=== PATIENT | female | born 1940 | race Caucasian/White ===

== ENCOUNTER 2020-10-21 12:46 | Inpatient (IN) | payer OTHER, MEDICAID, SELFPAY ==
[~2020-10-21] VITALS: Ht 152.4 cm; Wt 54.0 kg
[~2020-10-21 12:46] MED LIST: ATOR20TA64 PO; CLON2TAB11 PO; COU5 PO; GABA-331 PO; OXYC10TA48 PO
[2020-10-21 12:51] VITALS: BP_SYST 86
[2020-10-21 13:33] LABS: BILIRUBIN,URINE 1+ (NEGATIVE); BLOOD, URINE 1+ (NEGATIVE); COLOR,URINE YELLOW (YELLOW); GLUCOSE,URINE NEGATIVE (NEGATIVE); KETONES,URINE 3+ (NEGATIVE); LEUKOCYTE ESTERASE ,URINE NEGATIVE (NEGATIVE); NITRITE, URINE NEGATIVE (NEGATIVE); PH,URINE 6.5 (5.0-8.0); PROTEIN URINE TRACE (NEGATIVE)
[2020-10-21 13:36] LABS: CLARITY/URINE HAZY (CLEAR)
[2020-10-21 13:43] LABS: BACTERIA,URINE FEW /HPF (None Seen); WBC,URINE 0-3 /HPF (0-3)
[2020-10-21 13:44] LABS: MUCUS,URINE 1+ /LPF (None Seen)
[2020-10-21 14:04] LABS: WHITE BLOOD COUNT (AUTO) 10.5 K/uL (4.8-10.8)
[2020-10-21 14:08] LABS: ANION GAP 11 (5-15); CALCIUM 10.1 mg/dL (8.4-11.0); CHLORIDE 93 mmol/L (98-107); CREATININE 0.56 mg/dL (0.55-1.30); GLUCOSE 101 mg/dL (70-99); SODIUM SERUM 131 mmol/L (136-145); UREA NITROGEN, BLOOD 11 mg/dL (8-21)
[2020-10-21 14:11] LABS: BASOPHILS # (AUTO) 0.2 K/uL (0.0-0.2); BASOPHILS % (AUTO) 1.7 % (0.0-2.0); EOSINOPHILS % (AUTO) 0.4 % (0.0-4.0); HEMATOCRIT 41.7 % (36-48); HEMOGLOBIN 14.5 g/dL (12.0-16.0); LYMPHOCYTES # (AUTO) 2.1 K/uL (1.0-5.5); LYMPHOCYTES % (AUTO) 19.5 % (20.5-51.5); MEAN CORPUSCULAR HEMOGLOBIN 31 pg (27-31); MEAN CORPUSCULAR HGB CONC 35 % (32-36); MEAN CORPUSCULAR VOLUME 89 fL (79.0-98.0); MONOCYTES # (AUTO) 0.6 K/uL (0.0-1.0); MONOCYTES % (AUTO) 5.6 % (1.7-9.3); NEUTROPHILS # (AUTO) 7.7 K/uL (1.8-7.7); NEUTROPHILS % (AUTO) 72.8 % (40.0-70.0); PLATELET COUNT (AUTO) 285 K/uL (130-430); RED CELL DISTRIBUTION WIDTH 13.3 % (9.0-15.0)
[2020-10-21 14:14] LABS: ALANINE AMINOTRANSFERASE 30 U/L (12-78); ALBUMIN 3.8 g/dL (3.4-4.8); ASPARTATE AMINOTRANSFERASE 51 U/L (10-37); TOTAL BILIRUBIN 0.7 mg/dL (0.0-1.0)
[2020-10-21 14:35] LABS: POTASSIUM 2.5 mmol/L (3.5-5.1)
[2020-10-21 14:45] LABS: CKMB RELATIVE INDEX 1.8 (0.0-2.9); CREATINE KINASE MB 12.1 ng/mL (0-3.6)
[2020-10-21] MEDS ORDERED: POTASSIUM CHLORIDE 20 MEQ/PKT PACKET PO ONE (14:45)
[2020-10-21] MEDS ORDERED: WARF4TAB72 PO (15:53)
[2020-10-21] MEDS ORDERED: GABA800T PO (15:53)
[2020-10-21] MEDS ORDERED: AMLO1CAP PO (15:53)
[2020-10-21] MEDS ORDERED: LIP20 PO (15:53)
[2020-10-21] MEDS ORDERED: OXYIR5 PO (15:53)
[2020-10-21] MEDS ORDERED: VENL37.55 PO (15:53)
[2020-10-21] MEDS ORDERED: GALA8TAB3 PO (15:53)
[2020-10-21 16:57] VITALS: BP_SYST 136
[2020-10-21] MEDS ORDERED: ACETAMINOPHEN 325 MG TABLET PO PRN (19:15)
[2020-10-21] MEDS ORDERED: POTASSIUM CHLORIDE 20 MEQ TAB.PRT.SR PO ONE (19:15)
[2020-10-21 19:27] LABS: PROTHROMBIN TIME 45.4 SECS (9.5-12.5)
[2020-10-21 19:28] LABS: INR 4.8 (0.8-1.2)
[2020-10-21 20:00] VITALS: BP_SYST 91
[2020-10-21] MEDS: KCL 20 mEq in NS 1000 mL 1,000 ML IV SCH (20:29)
[2020-10-21] MEDS ORDERED: oxyCODONE HCL 5 MG TABLET PO PRN (22:15)
[2020-10-21] MEDS ORDERED: clonazePAM 0.5 MG TABLET PO ONE (22:30)
[2020-10-22] VITALS: BP_SYST 145
[2020-10-22] MEDS ORDERED: HALOPERIDOL LACTATE 5 MG/ML VIAL IM ONE (00:15)
[2020-10-22] MEDS ORDERED: HALOPERIDOL LACTATE 5 MG/ML VIAL ONE (00:20)
[2020-10-22 07:21] LABS: BASOPHILS % (AUTO) 0.2 % (0.0-2.0); EOSINOPHILS # (AUTO) 0.1 K/uL (0.0-0.4); EOSINOPHILS % (AUTO) 0.8 % (0.0-4.0); HEMATOCRIT 41.5 % (36-48); HEMOGLOBIN 14.2 g/dL (12.0-16.0); LYMPHOCYTES % (AUTO) 16.4 % (20.5-51.5); MEAN CORPUSCULAR HEMOGLOBIN 30 pg (27-31); MEAN CORPUSCULAR HGB CONC 34 % (32-36); MEAN CORPUSCULAR VOLUME 89 fL (79.0-98.0); MONOCYTES # (AUTO) 0.9 K/uL (0.0-1.0); MONOCYTES % (AUTO) 7.8 % (1.7-9.3); NEUTROPHILS % (AUTO) 74.8 % (40.0-70.0); PLATELET COUNT (AUTO) 253 K/uL (130-430); RED BLOOD CELL COUNT(AUTO) 4.68 MIL/uL (4.2-6.2); RED CELL DISTRIBUTION WIDTH 13.4 % (9.0-15.0)
[2020-10-22 08:10] LABS: ALANINE AMINOTRANSFERASE 39 U/L (12-78); ALBUMIN 3.5 g/dL (3.4-4.8); ANION GAP 10 (5-15); ASPARTATE AMINOTRANSFERASE 60 U/L (10-37); CALCIUM 9.9 mg/dL (8.4-11.0); CHLORIDE 100 mmol/L (98-107); CREATININE 0.48 mg/dL (0.55-1.30); GLUCOSE 91 mg/dL (70-99); SODIUM SERUM 139 mmol/L (136-145); THYROID STIMULATING HORMONE 1.92 uIu/mL (0.36-3.74); TOTAL BILIRUBIN 0.6 mg/dL (0.0-1.0); UREA NITROGEN, BLOOD 12 mg/dL (8-21)
[2020-10-22 08:22] LABS: POTASSIUM 2.8 mmol/L (3.5-5.1)
[2020-10-22] MEDS ORDERED: POTASSIUM CHLORIDE 40 MEQ, LIDOCAINE JECT 2% PF 100 MG 50 MG in NS 250 ML IV ONE (08:45)
[2020-10-22 08:53] LABS: CKMB RELATIVE INDEX 1.9 (0.0-2.9); CREATINE KINASE MB 14.9 ng/mL (0-3.6)
[2020-10-22 09:00] VITALS: BP_SYST 151
[2020-10-22] MEDS ORDERED: NON-FORMULARY MEDICATION (Gabapentin 600 MG) PO SCH (09:00)
[2020-10-22] MEDS ORDERED: clonazePAM 0.5 MG TABLET PO SCH (09:00)
[2020-10-22] MEDS: ATORVASTATIN 20 MG TABLET PO SCH (09:21)
[2020-10-22] MEDS: GABAPENTIN 300 MG CAPSULE PO SCH ×4 (09:21→22:29)
[2020-10-22] MEDS: Effexor XR 37.5 MG PO SCH (09:21)
[2020-10-22] MEDS: GALANTAMINE HYDROBROMIDE 4 MG TABLET PO SCH (09:21)
[2020-10-22 09:26] LABS: PROTHROMBIN TIME 39.7 SECS (9.5-12.5)
[2020-10-22] MEDS: KCL 20 mEq in NS 1000 mL 1,000 ML IV SCH ×2 (10:08→22:29)
[2020-10-22] MEDS ORDERED: oxyCODONE HCL 5 MG TABLET PO PRN (15:15)
[2020-10-22 16:02] VITALS: BP_SYST 114
[2020-10-22 20:10] VITALS: BP_SYST 146
[2020-10-22] MEDS: clonazePAM 0.5 MG TABLET PO SCH (22:29)
[2020-10-23 00:53] VITALS: BP_SYST 141
[2020-10-23 08:00] VITALS: BP_SYST 127
[2020-10-23] MEDS: clonazePAM 0.5 MG TABLET PO SCH ×2 (08:39→23:48)
[2020-10-23] MEDS: GALANTAMINE HYDROBROMIDE 4 MG TABLET PO SCH (08:40)
[2020-10-23] MEDS: GABAPENTIN 300 MG CAPSULE PO SCH (08:40)
[2020-10-23] MEDS: Effexor XR 37.5 MG PO SCH (09:00)
[2020-10-23] MEDS: ATORVASTATIN 20 MG TABLET PO SCH (09:00)
[2020-10-23 09:35] LABS: ALANINE AMINOTRANSFERASE 36 U/L (12-78); ALBUMIN 2.9 g/dL (3.4-4.8); ANION GAP 8 (5-15); ASPARTATE AMINOTRANSFERASE 52 U/L (10-37); CALCIUM 8.9 mg/dL (8.4-11.0); CHLORIDE 105 mmol/L (98-107); CREATININE 0.36 mg/dL (0.55-1.30); GLUCOSE 78 mg/dL (70-99); POTASSIUM 3.1 mmol/L (3.5-5.1); SODIUM SERUM 141 mmol/L (136-145); TOTAL BILIRUBIN 0.6 mg/dL (0.0-1.0); UREA NITROGEN, BLOOD 7 mg/dL (8-21)
[2020-10-23] MEDS ORDERED: POTASSIUM CHLORIDE 40 MEQ, LIDOCAINE JECT 2% PF 100 MG 50 MG in NS 250 ML IV ONE (09:45)
[2020-10-23 10:17] LABS: THYROID STIMULATING HORMONE 2.2 uIu/mL (0.36-3.74)
[2020-10-23 10:20] LABS: CKMB RELATIVE INDEX 2.2 (0.0-2.9); CREATINE KINASE MB 7.3 ng/mL (0-3.6)
[2020-10-23 11:11] LABS: INR 8.8 (0.8-1.2); PROTHROMBIN TIME 82.4 SECS (9.5-12.5)
[2020-10-23 12:04] VITALS: BP_SYST 132
[2020-10-23 16:49] VITALS: BP_SYST 132
[2020-10-23 21:00] VITALS: BP_SYST 133
[2020-10-23] MEDS ORDERED: QUEtiapine FUMARATE 25 MG TABLET PO SCH (21:00)
[2020-10-23] MEDS: DONEPEZIL HCL 5 MG TABLET (ARICEPT) PO SCH (23:48)
[2020-10-23] MEDS: KCL 20 mEq in NS 1000 mL 1,000 ML IV SCH (23:49)
[2020-10-24 00:25] VITALS: BP_SYST 161
[2020-10-24] MEDS: KCL 20 mEq in NS 1000 mL 1,000 ML IV SCH ×2 (05:39→11:45)
[2020-10-24 07:46] LABS: BASOPHILS # (AUTO) 0.1 K/uL (0.0-0.2); BASOPHILS % (AUTO) 1.2 % (0.0-2.0); EOSINOPHILS # (AUTO) 0.2 K/uL (0.0-0.4); EOSINOPHILS % (AUTO) 2.8 % (0.0-4.0); HEMATOCRIT 42.8 % (36-48); HEMOGLOBIN 14.4 g/dL (12.0-16.0); LYMPHOCYTES # (AUTO) 2.8 K/uL (1.0-5.5); LYMPHOCYTES % (AUTO) 32.4 % (20.5-51.5); MEAN CORPUSCULAR HEMOGLOBIN 31 pg (27-31); MEAN CORPUSCULAR HGB CONC 34 % (32-36); MEAN CORPUSCULAR VOLUME 91 fL (79.0-98.0); MONOCYTES # (AUTO) 0.6 K/uL (0.0-1.0); MONOCYTES % (AUTO) 6.8 % (1.7-9.3); NEUTROPHILS # (AUTO) 4.8 K/uL (1.8-7.7); NEUTROPHILS % (AUTO) 56.8 % (40.0-70.0); PLATELET COUNT (AUTO) 224 K/uL (130-430); RED BLOOD CELL COUNT(AUTO) 4.72 MIL/uL (4.2-6.2); RED CELL DISTRIBUTION WIDTH 13.9 % (9.0-15.0); WHITE BLOOD COUNT (AUTO) 8.5 K/uL (4.8-10.8)
[2020-10-24 07:51] LABS: INR 1.6 (0.8-1.2); PROTHROMBIN TIME 16.1 SECS (9.5-12.5)
[2020-10-24 08:09] LABS: ALANINE AMINOTRANSFERASE 34 U/L (12-78); ANION GAP 8 (5-15); ASPARTATE AMINOTRANSFERASE 47 U/L (10-37); CALCIUM 9.4 mg/dL (8.4-11.0); CHLORIDE 104 mmol/L (98-107); CREATININE 0.44 mg/dL (0.55-1.30); GLUCOSE 91 mg/dL (70-99); POTASSIUM 3.1 mmol/L (3.5-5.1); SODIUM SERUM 139 mmol/L (136-145); TOTAL BILIRUBIN 0.7 mg/dL (0.0-1.0); UREA NITROGEN, BLOOD 8 mg/dL (8-21)
[2020-10-24 08:35] VITALS: BP_SYST 170
[2020-10-24] MEDS: Effexor XR 37.5 MG PO SCH (08:51)
[2020-10-24] MEDS: clonazePAM 0.5 MG TABLET PO SCH ×2 (08:51→20:52)
[2020-10-24] MEDS: ATORVASTATIN 20 MG TABLET PO SCH (08:51)
[2020-10-24] MEDS: GALANTAMINE HYDROBROMIDE 4 MG TABLET PO SCH (08:51)
[2020-10-24] MEDS ORDERED: APIXABAN 2.5 MG TABLET PO ONE (09:45)
[2020-10-24 16:00] VITALS: BP_SYST 145
[2020-10-24] MEDS ORDERED: NICOTINE 21 MG/24 HR PATCH.TD24 TD ONE (16:45)
[2020-10-24 20:00] VITALS: BP_SYST 152
[2020-10-24] MEDS: DONEPEZIL HCL 5 MG TABLET (ARICEPT) PO SCH (20:53)
[2020-10-24] MEDS: APIXABAN 2.5 MG TABLET PO SCH (20:57)
[2020-10-24] MEDS: QUEtiapine FUMARATE 25 MG TABLET PO SCH (20:57)
[2020-10-25] VITALS: BP_SYST 167
[2020-10-25] MEDS ORDERED: cloNIDine HCL 0.1 MG TABLET PO ONE (00:30)
[2020-10-25] MEDS: KCL 20 mEq in NS 1000 mL 1,000 ML IV SCH ×2 (06:38→16:00)
[2020-10-25 08:30] VITALS: BP_SYST 151
[2020-10-25] MEDS: GALANTAMINE HYDROBROMIDE 4 MG TABLET PO SCH (09:39)
[2020-10-25] MEDS: ATORVASTATIN 20 MG TABLET PO SCH (09:40)
[2020-10-25] MEDS: QUEtiapine FUMARATE 25 MG TABLET PO SCH ×2 (09:40→23:06)
[2020-10-25] MEDS: APIXABAN 2.5 MG TABLET PO SCH ×2 (09:40→23:07)
[2020-10-25] MEDS: clonazePAM 0.5 MG TABLET PO SCH ×2 (09:41→23:07)
[2020-10-25] MEDS: NICOTINE 21 MG/24 HR PATCH.TD24 TD SCH (09:42)
[2020-10-25 12:20] VITALS: BP_SYST 114
[2020-10-25 16:00] VITALS: BP_SYST 107
[2020-10-25] MEDS ORDERED: cloNIDine HCL 0.1 MG TABLET PO PRN (17:15)
[2020-10-25 20:00] VITALS: BP_SYST 120
[2020-10-25] MEDS: DONEPEZIL HCL 5 MG TABLET (ARICEPT) PO SCH (23:06)
[2020-10-26] VITALS: BP_SYST 104
[2020-10-26] MEDS: KCL 20 mEq in NS 1000 mL 1,000 ML IV SCH ×2 (05:49→22:07)
[2020-10-26 08:30] VITALS: BP_SYST 99
[2020-10-26] MEDS: GALANTAMINE HYDROBROMIDE 4 MG TABLET PO SCH (09:31)
[2020-10-26] MEDS: ATORVASTATIN 20 MG TABLET PO SCH (09:31)
[2020-10-26] MEDS: NICOTINE 21 MG/24 HR PATCH.TD24 TD SCH (09:31)
[2020-10-26] MEDS: APIXABAN 2.5 MG TABLET PO SCH ×2 (09:32→22:05)
[2020-10-26] MEDS: QUEtiapine FUMARATE 25 MG TABLET PO SCH ×2 (09:32→22:06)
[2020-10-26 12:00] VITALS: BP_SYST 136
[2020-10-26 16:05] VITALS: BP_SYST 154
[2020-10-26 20:00] VITALS: BP_SYST 107
[2020-10-26] MEDS ORDERED: clonazePAM 0.5 MG TABLET PO SCH (21:00)
[2020-10-26] MEDS: DONEPEZIL HCL 5 MG TABLET (ARICEPT) PO SCH (22:06)
[2020-10-27] VITALS: BP_SYST 114
[2020-10-27 08:00] VITALS: BP_SYST 143
[2020-10-27] MEDS ORDERED: clonazePAM 0.5 MG TABLET PO SCH (09:00)
[2020-10-27] MEDS ORDERED: clonazePAM 0.5 MG TABLET ONE (11:20)
[2020-10-27] MEDS: NICOTINE 21 MG/24 HR PATCH.TD24 TD SCH (11:23)
[2020-10-27] MEDS: GALANTAMINE HYDROBROMIDE 4 MG TABLET PO SCH (11:23)
[2020-10-27] MEDS: QUEtiapine FUMARATE 25 MG TABLET PO SCH (11:23)
[2020-10-27] MEDS: ATORVASTATIN 20 MG TABLET PO SCH (11:23)
[2020-10-27] MEDS: APIXABAN 2.5 MG TABLET PO SCH (11:26)
[2020-10-27] MEDS ORDERED: POTASSIUM CHLORIDE 20 MEQ TAB.PRT.SR PO ONE (12:00)
[2020-10-27 16:35] VITALS: BP_SYST 121
== END 2020-10-27 17:05 | DRG 64 ==
LOC: SED 12:46 → STU 15:54
PROVIDERS: ADMIT Internal Medicine; ATTEND Internal Medicine
DX: I63.9 Cerebral infarction, unspecified (principal); G93.41 Metabolic encephalopathy; E87.1 Hypo-osmolality and hyponatremia; F11.20 Opioid dependence, uncomplicated; F13.20 Sedative, hypnotic or anxiolytic dependence, uncomplicated; M62.82 Rhabdomyolysis; E87.6 Hypokalemia; E86.0 Dehydration; E78.5 Hyperlipidemia, unspecified; F03.90 Unspecified dementia, unspecified severity, without behavioral disturbance, psychotic disturbance, mood disturbance, and anxiety; F17.210 Nicotine dependence, cigarettes, uncomplicated; F41.9 Anxiety disorder, unspecified; G25.81 Restless legs syndrome; I11.9 Hypertensive heart disease without heart failure; G89.4 Chronic pain syndrome; Z20.822 Contact with and (suspected) exposure to COVID-19; G62.9 Polyneuropathy, unspecified; F29 Unspecified psychosis not due to a substance or known physiological condition; I73.9 Peripheral vascular disease, unspecified; J44.9 Chronic obstructive pulmonary disease, unspecified; Z79.01 Long term (current) use of anticoagulants; Z86.718 Personal history of other venous thrombosis and embolism; Z86.73 Personal history of transient ischemic attack (TIA), and cerebral infarction without residual deficits; Z71.6 Tobacco abuse counseling; Z78.1 Physical restraint status
CPT/HCPCS: 36415; 70450-TC; 71045; 76376; 80053; 80061; 81000-TC; 82550-TC; 82553-TC; 82607; 82962; 83735-TC; 84443-TC; 84484; 85025; 85610-TC; 85730-TC; 87040-TC; 87086; 92610-GN; 93005; 93306; 93880; 95816; 97110-GP; 97112-GP; 97116-GP; 97530-GP; 99285; G0378; J1630; J3480; J7050

== ENCOUNTER 2022-09-12 13:13 | Inpatient (IN) | payer OTHER, MEDICAID ==
[~2022-09-12] VITALS: Ht 162.6 cm; Wt 51.7 kg
[~2022-09-12 13:13] MED LIST changes: +AMLO-138 PO; -CLON2TAB11 PO; -COU5 PO; -GABA-331 PO; +LIP20 PO; -OXYC10TA48 PO; +VENL37.55 PO
[2022-09-12 13:20] VITALS: BP_SYST 124
[2022-09-12] MEDS ORDERED: POTASSIUM (14:12)
[2022-09-12] MEDS ORDERED: RIVA2.5T (14:12)
[2022-09-12] MEDS ORDERED: VENL37.587 (14:12)
[2022-09-12] MEDS ORDERED: LACT1CAP69 (14:12)
[2022-09-12] MEDS ORDERED: LIPA1CAP26 (14:15)
[2022-09-12] MEDS ORDERED: PRO40 (14:15)
[2022-09-12] MEDS ORDERED: KLO.5 (14:15)
[2022-09-12 14:22] LABS: BASOPHILS # (AUTO) 0.1 K/uL (0.0-0.2); BASOPHILS % (AUTO) 0.6 % (0.0-2.0); EOSINOPHILS # (AUTO) 0.4 K/uL (0.0-0.4); EOSINOPHILS % (AUTO) 4.2 % (0.0-4.0); HEMATOCRIT 41.1 % (36-48); HEMOGLOBIN 14.4 g/dL (12.0-16.0); LYMPHOCYTES % (AUTO) 31.4 % (20.5-51.5); MEAN CORPUSCULAR HEMOGLOBIN 31 pg (27-31); MEAN CORPUSCULAR HGB CONC 35 % (32-36); MEAN CORPUSCULAR VOLUME 87 fL (79.0-98.0); MONOCYTES # (AUTO) 0.5 K/uL (0.0-1.0); MONOCYTES % (AUTO) 5.2 % (1.7-9.3); NEUTROPHILS # (AUTO) 5.6 K/uL (1.8-7.7); NEUTROPHILS % (AUTO) 58.6 % (40.0-70.0); PLATELET COUNT (AUTO) 232 K/uL (130-430); RED BLOOD CELL COUNT(AUTO) 4.71 MIL/uL (4.2-6.2); RED CELL DISTRIBUTION WIDTH 13.7 % (9.0-15.0); WHITE BLOOD COUNT (AUTO) 9.6 K/uL (4.8-10.8)
[2022-09-12 14:27] LABS: ANION GAP 6 (5-15); CALCIUM 10.4 mg/dL (8.4-11.0); CHLORIDE 106 mmol/L (98-107); CREATININE 0.74 mg/dL (0.55-1.30); GLUCOSE 120 mg/dL (70-99); UREA NITROGEN, BLOOD 19 mg/dL (8-21)
[2022-09-12 14:36] LABS: ALANINE AMINOTRANSFERASE 13 U/L (12-78); ALBUMIN 3.3 g/dL (3.4-4.8); ASPARTATE AMINOTRANSFERASE 15 U/L (10-37); TOTAL BILIRUBIN 0.5 mg/dL (0.0-1.0)
[2022-09-12 18:45] VITALS: BP_SYST 114; BP_SYST 96
[2022-09-12] MEDS ORDERED: POTASSIUM CHLORIDE 20 MEQ TAB.PRT.SR PO ONE (19:30)
[2022-09-12] MEDS ORDERED: METOPROLOL TARTRATE 25 MG TABLET PO ONE (19:45)
[2022-09-12 20:00] VITALS: BP_SYST 122
[2022-09-12] MEDS: clonazePAM 0.5 MG TABLET PO SCH (20:15)
[2022-09-12] MEDS ORDERED: ENOXAPARIN SODIUM 40 MG/0.4 ML SYRINGE SUBCUT SCH (21:00)
[2022-09-13] VITALS: BP_SYST 118
[2022-09-13] MEDS ORDERED: ZOLPIDEM TARTRATE 5 MG TABLET ONE (01:13)
[2022-09-13] MEDS ORDERED: ZOLPIDEM TARTRATE 5 MG TABLET PO PRN (01:15)
[2022-09-13 07:57] VITALS: BP_SYST 135
[2022-09-13 08:53] LABS: ANION GAP 8 (5-15); CALCIUM 10.2 mg/dL (8.4-11.0); CHLORIDE 105 mmol/L (98-107); CREATININE 0.76 mg/dL (0.55-1.30); GLUCOSE 129 mg/dL (70-99); UREA NITROGEN, BLOOD 21 mg/dL (8-21)
[2022-09-13 08:55] LABS: BASOPHILS # (AUTO) 0.1 K/uL (0.0-0.2); BASOPHILS % (AUTO) 0.6 % (0.0-2.0); EOSINOPHILS # (AUTO) 0.3 K/uL (0.0-0.4); EOSINOPHILS % (AUTO) 3.8 % (0.0-4.0); HEMATOCRIT 42.1 % (36-48); HEMOGLOBIN 14.4 g/dL (12.0-16.0); LYMPHOCYTES % (AUTO) 32.9 % (20.5-51.5); MEAN CORPUSCULAR HEMOGLOBIN 30 pg (27-31); MEAN CORPUSCULAR HGB CONC 34 % (32-36); MEAN CORPUSCULAR VOLUME 89 fL (79.0-98.0); MONOCYTES # (AUTO) 0.6 K/uL (0.0-1.0); MONOCYTES % (AUTO) 6.6 % (1.7-9.3); NEUTROPHILS # (AUTO) 5.1 K/uL (1.8-7.7); NEUTROPHILS % (AUTO) 56.1 % (40.0-70.0); PLATELET COUNT (AUTO) 241 K/uL (130-430); RED BLOOD CELL COUNT(AUTO) 4.74 MIL/uL (4.2-6.2); RED CELL DISTRIBUTION WIDTH 14.6 % (9.0-15.0); WHITE BLOOD COUNT (AUTO) 9.1 K/uL (4.8-10.8)
[2022-09-13] MEDS ORDERED: METOPROLOL TARTRATE 25 MG TABLET PO SCH (09:00)
[2022-09-13] MEDS ORDERED: amLODIPine BESYLATE 10 MG TABLET PO SCH (09:00)
[2022-09-13] MEDS ORDERED: lisinopriL 20 MG TABLET PO SCH (09:00)
[2022-09-13] MEDS ORDERED: ATORVASTATIN 20 MG TABLET PO SCH (09:00)
[2022-09-13 09:05] LABS: ALANINE AMINOTRANSFERASE 10 U/L (12-78); ALBUMIN 3.6 g/dL (3.4-4.8); ASPARTATE AMINOTRANSFERASE 13 U/L (10-37); CHOLESTEROL 134 mg/dL (<200); FREE T4 (FREE THYROXINE) 1.3 ng/dL (0.6-1.6); HDL CHOLESTEROL 64 mg/dL (>55); LDL CHOLESTEROL 56 mg/dL (<100); THYROID STIMULATING HORMONE 2.15 uIu/mL (0.34-4.82); TOTAL BILIRUBIN 0.5 mg/dL (0.0-1.0); TRIGLYCERIDES 79 mg/dL (30-150)
[2022-09-13] MEDS: PANTOPRAZOLE SODIUM 40 MG TAB PO SCH (09:07)
[2022-09-13] MEDS: POTASSIUM CHLORIDE 20 MEQ TAB.PRT.SR PO SCH (09:07)
[2022-09-13] MEDS: LIPASE/PROTEASE/AMYLASE 1 CAP PO SCH ×3 (09:07→17:16)
[2022-09-13] MEDS: clonazePAM 0.5 MG TABLET PO SCH ×2 (09:08→20:38)
[2022-09-13] MEDS: Effexor XR 37.5 MG PO SCH (09:21)
[2022-09-13] MEDS: ATORVASTATIN 20 MG TABLET PO SCH (09:23)
[2022-09-13 11:56] VITALS: BP_SYST 130
[2022-09-13 16:17] VITALS: BP_SYST 140
[2022-09-13] MEDS: RIVAROXABAN 10 MG TABLET PO SCH (17:18)
[2022-09-13 20:00] VITALS: BP_SYST 146
[2022-09-13] MEDS: METOPROLOL TARTRATE 25 MG TABLET PO SCH (20:38)
[2022-09-14] VITALS: BP_SYST 135
[2022-09-14] MEDS: Effexor XR 37.5 MG PO SCH (08:57)
[2022-09-14] MEDS: METOPROLOL TARTRATE 25 MG TABLET PO SCH ×2 (08:58→20:11)
[2022-09-14] MEDS: clonazePAM 0.5 MG TABLET PO SCH ×2 (08:59→20:10)
[2022-09-14] MEDS: ATORVASTATIN 20 MG TABLET PO SCH (08:59)
[2022-09-14] MEDS: PANTOPRAZOLE SODIUM 40 MG TAB PO SCH (08:59)
[2022-09-14] MEDS: POTASSIUM CHLORIDE 20 MEQ TAB.PRT.SR PO SCH (09:00)
[2022-09-14] MEDS: LIPASE/PROTEASE/AMYLASE 1 CAP PO SCH ×3 (09:00→17:40)
[2022-09-14 11:33] VITALS: BP_SYST 138
[2022-09-14 16:21] VITALS: BP_SYST 136
[2022-09-14] MEDS ORDERED: QUEtiapine FUMARATE 25 MG TABLET PO SCH (18:00)
[2022-09-14] MEDS: RIVAROXABAN 10 MG TABLET PO SCH (18:54)
[2022-09-14 20:00] VITALS: BP_SYST 119
[2022-09-15 00:18] VITALS: BP_SYST 121
[2022-09-15 07:23] LABS: BASOPHILS % (AUTO) 0.5 % (0.0-2.0); EOSINOPHILS # (AUTO) 0.3 K/uL (0.0-0.4); EOSINOPHILS % (AUTO) 5.2 % (0.0-4.0); HEMOGLOBIN 12.6 g/dL (12.0-16.0); LYMPHOCYTES # (AUTO) 3.2 K/uL (1.0-5.5); LYMPHOCYTES % (AUTO) 48.1 % (20.5-51.5); MEAN CORPUSCULAR HEMOGLOBIN 30 pg (27-31); MEAN CORPUSCULAR HGB CONC 34 % (32-36); MEAN CORPUSCULAR VOLUME 88 fL (79.0-98.0); MONOCYTES # (AUTO) 0.4 K/uL (0.0-1.0); MONOCYTES % (AUTO) 6.3 % (1.7-9.3); NEUTROPHILS # (AUTO) 2.6 K/uL (1.8-7.7); NEUTROPHILS % (AUTO) 39.9 % (40.0-70.0); PLATELET COUNT (AUTO) 223 K/uL (130-430); RED BLOOD CELL COUNT(AUTO) 4.22 MIL/uL (4.2-6.2); RED CELL DISTRIBUTION WIDTH 14.3 % (9.0-15.0); WHITE BLOOD COUNT (AUTO) 6.6 K/uL (4.8-10.8)
[2022-09-15 07:52] LABS: ANION GAP 7 (5-15); CALCIUM 10.1 mg/dL (8.4-11.0); CHLORIDE 106 mmol/L (98-107); CREATININE 0.57 mg/dL (0.55-1.30); GLUCOSE 93 mg/dL (70-99); UREA NITROGEN, BLOOD 16 mg/dL (8-21)
[2022-09-15 08:00] VITALS: BP_SYST 103
[2022-09-15] MEDS: clonazePAM 0.5 MG TABLET PO SCH (08:58)
[2022-09-15] MEDS: ATORVASTATIN 20 MG TABLET PO SCH (08:58)
[2022-09-15] MEDS: POTASSIUM CHLORIDE 20 MEQ TAB.PRT.SR PO SCH (08:58)
[2022-09-15] MEDS: LIPASE/PROTEASE/AMYLASE 1 CAP PO SCH ×2 (08:58→12:39)
[2022-09-15] MEDS: PANTOPRAZOLE SODIUM 40 MG TAB PO SCH (08:58)
[2022-09-15] MEDS: METOPROLOL TARTRATE 25 MG TABLET PO SCH (08:59)
[2022-09-15] MEDS: Effexor XR 37.5 MG PO SCH (08:59)
[2022-09-15] MEDS ORDERED: POTASSIUM CHLORIDE 20 MEQ TAB.PRT.SR PO ONE (11:30)
[2022-09-15 11:34] VITALS: BP_SYST 141
[2022-09-15] MEDS ORDERED: METO25TA6 PO (13:34)
== END 2022-09-15 16:15 | disposition home health service (06) | DRG 309 ==
LOC: SED 13:13 → STU 16:05
PROVIDERS: ADMIT Internal Medicine; ATTEND Internal Medicine
DX: I48.0 Paroxysmal atrial fibrillation (principal); E44.1 Mild protein-calorie malnutrition; I69.354 Hemiplegia and hemiparesis following cerebral infarction affecting left non-dominant side; F03.92 Unspecified dementia, unspecified severity, with psychotic disturbance; F05 Delirium due to known physiological condition; Z68.1 Body mass index [BMI] 19.9 or less, adult; K21.9 Gastro-esophageal reflux disease without esophagitis; I65.21 Occlusion and stenosis of right carotid artery; E87.6 Hypokalemia; E78.5 Hyperlipidemia, unspecified; F41.9 Anxiety disorder, unspecified; F32.A Depression, unspecified; I10 Essential (primary) hypertension; K86.89 Other specified diseases of pancreas; Z20.822 Contact with and (suspected) exposure to COVID-19; Z86.718 Personal history of other venous thrombosis and embolism
CPT/HCPCS: 36415; 70450-TC; 71045; 76376; 80048; 80053; 80061; 82550; 83735; 83880; 84439; 84443; 84484; 85025; 85379; 93005; 93306; 96365; 99291; G0378; J1650; J3490; J7060